=== PATIENT | male | born 1990 | race African-American/Black ===

== ENCOUNTER 2024-09-16 18:01 | Emergency (ER) | payer OTHER, MEDICAID, SELFPAY ==
[2024-09-16] VITALS (11 sets, daily range): BP systolic 130–135; BP diastolic 87–94; PULSE 90; RESP 20; TEMP 36.6; O2SAT 97–100
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
[2024-09-16] MEDS: TETANUS,DIPHTHERIA,AC PERTUSSIS ADULT (0.5 ML) BOOSTRIX IM (18:30)
[2024-09-16 18:53] LABS: Cannabinoid Screen Urine Positive (Negative)
[2024-09-16] MEDS: TETRACAINE HCL 0.5% OPHTH SOLN 4 ML BTL 1 DROP EACH EYE (18:57)
[2024-09-16] MEDS: FLUORESCEIN SOD 1 MG/STRIP EACH EYE (18:57)
[2024-09-16 19:07] LABS: Add Urine Microscopic? YES; Appearance Urine Clear (Clear); Glucose Urine UA Negative (Negative); Leukocyte Esterase Ur Negative LEU/UL (Negative); Need Manual Microscopic Reviewed; Nitrate Urine Negative (Negative); Specific Grav Ur 1.023 (1.001-1.035)
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
== END 2024-09-16 21:28 | disposition short-term general hospital (02) ==
PROVIDERS: Emergency Provider Registered Nurse
DX: S02.2XXA Fracture of nasal bones, initial encounter for closed fracture (principal); S01.112A Laceration without foreign body of left eyelid and periocular area, initial encounter; Z23 Encounter for immunization; Y04.2XXA Assault by strike against or bumped into by another person, initial encounter
CPT/HCPCS: 12011; 70450; 70486; 72125; 80307; 81001; 90471; 90715; 99285

== ENCOUNTER 2024-09-17 07:14 | Emergency (ER) | payer OTHER, MEDICAID, SELFPAY ==
[2024-09-17 07:17] VITALS: BP 139/99; PULSE 65; RESP 16; TEMP 36.6; O2SAT 100
[2024-09-17 07:32] VITALS: PULSE 79; O2SAT 99
[2024-09-17 08:00] VITALS: BP 144/102; PULSE 80; RESP 19; O2SAT 99
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
[2024-09-17 08:30] VITALS: BP 147/89; PULSE 74; RESP 20; O2SAT 96
--- NOTE | 2024-09-17 15:58 | ECG_ITS ---
Test Date: 2024-09-17 07:20:04 Measurements Intervals [place] Rate: 70 P: 55 IN: 140 QRS: 72 QRSD: 102 T: 61 QT: 383 QTc: 415 Interpretive Statements SINUS RHYTHM MODERATE VOLTAGE CRITERIA FOR LVH, CONSIDER NORMAL VARIANT [MEETS CRITERIA IN ONE OF: R(aVL), S(V1), R(V5), R(V5/V6)+S(V1)] No previous ECG available for comparison Electronically Signed On 09-17-2024 16:46:44 CDT by Rogelio Spears
== END 2024-09-17 08:59 | disposition left against medical advice (07) ==
PROVIDERS: Emergency Provider Emergency Medicine
DX: T40.5X1A Poisoning by cocaine, accidental (unintentional), initial encounter (principal)
CPT/HCPCS: 93005; 99284